=== PATIENT | male | born 1955 | race Caucasian/White ===

== ENCOUNTER 2021-03-18 12:45 | Emergency (ER) | payer OTHER ==
[2021-03-18 13:46] LABS: Absolute Lymphocytes (CBC) 0.9 K/uL (0.7-4.9); Basophils % 0.3 % (0-1.3); Hematocrit 45.9 % (39.6-49.0); Lymphocytes % 18.4 % (15.3-44.8); MPV 8.1 fL (7.6-11.3); RBC Red Blood Cell Count 4.73 M/uL (4.33-5.43)
[2021-03-18 13:47] LABS: Protime INR 1.01
[2021-03-18 14:05] LABS: ALT/SGPT 41 U/L (12-78); AST/SGOT 20 U/L (15-37); Albumin 4.2 g/dL (3.4-5.0); Alkaline Phosphatase 41 U/L (45-117); BUN Blood Urea Nitrogen 18 mg/dL (7-18); Bicarbonate 26 mmol/L (21-32); Bilirubin Direct 0.2 mg/dL (0-0.2); Bilirubin Total 0.8 mg/dL (0.2-1.0); Glucose Level 117 mg/dL (74-106); Magnesium 2.3 mg/dL (1.8-2.4); NT PRO-BNP 959 pg/mL (<125); Potassium 4.5 mmol/L (3.5-5.1); Protein, Total 7.8 g/dL (6.4-8.2); Sodium Level 139 mmol/L (136-145); Troponin (Emerg Dept Use Only) < 0.02 ng/mL (0.0-0.045)
--- NOTE | 2021-03-18 14:48 | RAD REPORT ---
EXAM DESCRIPTION: RAD - Chest Single View - 03/18/2021 1:58 pm CLINICAL HISTORY: A. fib, shortness of breath Chest pain. COMPARISON: No comparisons FINDINGS: Portable technique limits examination quality. The lungs are grossly clear. The heart is upper limit of normal in size. No displaced fractures. IMPRESSION: No acute intrathoracic process suspected.
[2021-03-18] MEDS ORDERED: ASPIRIN 81 MG CHEWABLE TABLET ONE (15:30)
[2021-03-18] MEDS ORDERED: APIXABAN 5 MG TABLET ONE (15:30)
--- NOTE | 2021-03-18 16:38 | ER ---
Nurse's Notes [facility] Name: Hood Newsome Age: 65 yrs Sex: Male : 1955 Arrival Date: 03/18/2021 Time: 12:46 Bed 25 Private MD: Pan Castañeda Diagnosis: Unspecified atrial fibrillation Presentation: 03/18 12:56 Chief complaint: Patient states: "I was at my doctors today and was having normal heart jd3 rates then it would jump to 170's. he did an EKG and told me to come to the ER.". Coronavirus screen: At this time, the client does not indicate any symptoms associated with coronavirus-19. Ebola Screen: Patient negative for fever greater than or equal to 101.5 degrees Fahrenheit, and additional compatible Ebola Virus Disease symptoms. Initial Sepsis Screen: Does the patient meet any 2 criteria? No. Patient's initial sepsis screen is negative. Does the patient have a suspected source of infection? No. Patient's initial sepsis screen is negative. Risk Assessment: Do you want to hurt yourself or someone else? Patient reports no desire to harm self or others. Onset of symptoms was March 18, 2021. 12:56 Method Of Arrival: Ambulatory jd3 12:56 Acuity: ABY 3 jd3 Triage Assessment: 13:31 Respiratory: Reports cough that is productive, Onset: The symptoms/episode oh began/occurred reports cough for over 6 months, using at home remedy, the patient has moderate shortness of breath. Historical: - Allergies: 12:58 No Known Allergies; jd3 - Home Meds: 12:58 None [Active]; jd3 - PMHx: 12:58 None; jd3 - PSHx: 12:58 surgery on lungs when baby; jd3 - Immunization history:: Adult Immunizations unknown, Client reports having NOT received the Covid vaccine. - Social history:: Smoking status: Patient/guardian denies using tobacco, but has a distant history of tobacco abuse. Screenin:30 Abuse screen: Denies threats or abuse. Nutritional screening: No deficits noted. oh Tuberculosis screening: No symptoms or risk factors identified. Fall Risk None identified. Assessment: 13:27 General: Appears in no apparent distress. Behavior is calm, cooperative, appropriate oh for age, Reports chronic cough. Pain: Denies pain. Cardiovascular: Parent/caregiver reports patient has had since PCP reports arrythmia. Respiratory: Airway is patent Respiratory effort is unlabored, Breath sounds with rhonchi bilaterally. 13:31 Cardiovascular: Rhythm is atrial fibrillation. oh Vital Signs: 12:59 BP 134 / 97; Pulse 96; Resp 18 S; Temp 97.9(TE); Pulse Ox 100% on R/A; Weight 98.43 kg jd3 (R); Height 5 ft. 10 in. (177.80 cm) (R); Pain 0/10; 16:13 BP 129 / 90; Pulse 85; Resp 17; Pulse Ox 97% ; oh 17:13 BP 131 / 91; Pulse 90; Resp 19; Pulse Ox 99% on R/A; oh 12:59 Body Mass Index 31.14 (98.43 kg, 177.80 cm) jd3 ED Course: 12:46 Patient arrived in ED. am2 12:47 Pan Castañeda is Private Physician. am2 12:53 Rad Osuna MD is Attending Physician. kdr 12:57 Triage completed. jd3 12:59 Arm band placed on. jd3 13:05 Ruchi Toledo, RN is Primary Nurse. oh 13:30 Inserted saline lock: 20 gauge in left antecubital area, using aseptic technique. Blood oh collected. 13:32 Placed in gown. Bed in low position. Call light in reach. Side rails up X 1. oh 13:58 XRAY Chest (1 view) In Process Unspecified. EDMS 16:14 No provider procedures requiring assistance completed. oh 16:37 Pan Castañeda is Referral Physician. kdr 17:15 intact. oh Administered Medications: 15:08 Drug: Eliquis (apixaban) 5 mg Route: PO; oh 16:12 Follow up: Response: No adverse reaction oh 15:08 Drug: Aspirin 81 mg Route: PO; oh 16:12 Follow up: Response: No adverse reaction oh 16:55 Drug: Lopressor (metoprolol TARTRATE)) 25 mg Route: PO; oh Outcome: 16:38 Discharge ordered by . kdr 17:14 Discharged to home ambulatory. oh 17:14 Condition: stable 17:14 Discharge instructions given to patient. 17:16 Patient left the ED. dh3 Signatures: Dispatcher [employer] EDMS Rad Osuna MD MD kdr Eleonora King 2 Rosemary Raymundo 3 Star Kamara RN RN jd3 Ruchi Toledo RN RN oh
--- NOTE | 2021-03-18 16:38 | EDPHYS ---
Physician Documentation [facility] Name: Hood Newsome Age: 65 yrs Sex: Male : 1955 Arrival Date: 03/18/2021 Time: 12:46 Bed 25 Private MD: Pan Castañeda ED Physician Rad Osuna Historical: - Allergies: 03/18 12:58 No Known Allergies; jd3 - Home Meds: 12:58 None [Active]; jd3 - PMHx: 12:58 None; jd3 - PSHx: 12:58 surgery on lungs when baby; jd3 - Immunization history:: Adult Immunizations unknown, Client reports having NOT received the Covid vaccine. - Social history:: Smoking status: Patient/guardian denies using tobacco, but has a distant history of tobacco abuse. Vital Signs: 12:59 BP 134 / 97; Pulse 96; Resp 18 S; Temp 97.9(TE); Pulse Ox 100% on R/A; Weight 98.43 kg jd3 (R); Height 5 ft. 10 in. (177.80 cm) (R); Pain 0/10; 16:13 BP 129 / 90; Pulse 85; Resp 17; Pulse Ox 97% ; oh 17:13 BP 131 / 91; Pulse 90; Resp 19; Pulse Ox 99% on R/A; oh 12:59 Body Mass Index 31.14 (98.43 kg, 177.80 cm) jd3 MDM: 16:38 Patient medically screened. [facility] 03/18 12:54 Order name: Basic Metabolic Panel; Complete Time: 14:44 [facility] 03/18 12:54 Order name: CBC with Diff; Complete Time: 14:44 [facility] 03/18 12:54 Order name: LFT's; Complete Time: 14:44 [facility] 03/18 12:54 Order name: Magnesium; Complete Time: 14:44 [facility] 03/18 12:54 Order name: NT PRO-BNP; Complete Time: 14:44 [facility] 03/18 12:54 Order name: PT-INR; Complete Time: 14:44 [facility] 03/18 12:54 Order name: Troponin (emerg Dept Use Only); Complete Time: 14:44 [facility] 03/18 12:54 Order name: XRAY Chest (1 view); Complete Time: 14:51 [facility] 03/18 12:54 Order name: EKG; Complete Time: 12:54 kdr 03/18 12:54 Order name: Cardiac monitoring; Complete Time: 13:27 kdr 03/18 12:54 Order name: EKG - Nurse/Tech; Complete Time: 13:27 kdr 03/18 12:54 Order name: IV Saline Lock; Complete Time: 13:27 kdr 03/18 12:54 Order name: Labs collected and sent; Complete Time: 13:27 kdr 03/18 12:54 Order name: O2 Per Protocol; Complete Time: 13: kdr 03/18 12:54 Order name: O2 Sat Monitoring; Complete Time: 13:27 kdr Administered Medications: 15:08 Drug: Eliquis (apixaban) 5 mg Route: PO; oh 16:12 Follow up: Response: No adverse reaction oh 15:08 Drug: Aspirin 81 mg Route: PO; oh 16:12 Follow up: Response: No adverse reaction oh 16:55 Drug: Lopressor (metoprolol TARTRATE)) 25 mg Route: PO; oh Disposition Summary: 03/18/21 16:38 Discharge Ordered Location: Home kdr Problem: an ongoing problem kdr Symptoms: have improved kdr Condition: Stable kdr Diagnosis - Unspecified atrial fibrillation kdr Followup: kdr - With: Pan Castañeda - When: 2 - 3 days - Reason: If symptoms return, Further diagnostic work-up, Recheck today's complaints, Continuance of care, Re-evaluation by your physician Discharge Instructions: - Discharge Summary Sheet kdr - Atrial Fibrillation kdr Forms: - Medication Reconciliation Form kdr - Thank You Letter kdr Prescriptions: - Eliquis 5 mg Oral tablet - take 1 tablet by ORAL route 2 times per day; 20 tablet; Refills: 0, Product kdr Selection Permitted - Lopressor 50 mg Oral tablet - take 1 tablet by ORAL route once daily with a meal; 20 tablet; Refills: 0, kdr Product Selection Permitted Signatures: Dispatcher [employer] Rad Bernardo MD MD kdr Davies, Jonathon RN RN Ruchi Amin RN RN oh
[2021-03-18] MEDS ORDERED: METOPROLOL TAR 25 MG TAB ONE (17:31)
[2021-03-18 17:34] VITALS: TEMP 97.9
[2021-03-18 17:37] VITALS: BP 131/91; O2SAT 99
== END 2021-03-18 17:16 | disposition home or self-care (01) ==
LOC: ER 12:45
DX: I48.91 Unspecified atrial fibrillation (principal)
CPT/HCPCS: 36415; 71045; 80048; 80076; 83735; 83880; 84484; 85025; 85610; 93005; 99284